=== PATIENT | female | born 1950 | race Caucasian/White ===

== ENCOUNTER → 2024-07-27 06:26 | Outpatient (REF) | payer MEDICARE, BC, SELFPAY | LOC: HWRAD 06:26 | PROVIDERS: ATTENDING PHYSICIAN Podiatrist Foot & Ankle Surgery; FAMILY PHYSICIAN Family Medicine | DX: M20.11 Hallux valgus (acquired), right foot (principal) | CPT/HCPCS: 73630 ==

== ENCOUNTER → 2025-03-23 08:12 | Outpatient (REF) | payer MEDICARE, BC, SELFPAY | LOC: HWWDC 08:12 | PROVIDERS: ATTENDING PHYSICIAN Obstetrics & Gynecology Gynecology; FAMILY PHYSICIAN Family Medicine | DX: Z12.31 Encounter for screening mammogram for malignant neoplasm of breast (principal) | CPT/HCPCS: 77063; 77067 ==